=== PATIENT | female | born 1950 | race Caucasian/White ===

== ENCOUNTER 2017-09-04 12:15 | Outpatient (CLI) | payer OTHER ==
--- NOTE | 2017-09-05 07:51 | MRI ---
MRI LEFT KNEE WITHOUT CONTRAST: HISTORY: M22.92, unspecified internal derangement. Pain for 2 months. Injury helping move. COMPARISON: Knee radiographs 07/18/17. FINDINGS: Medial Meniscus: There is a full-thickness radial tear at the posterior root attachment of the median meniscus with a gap measuring approximately 4 mm. There is medial gutter extrusion of 4-5 mm median meniscal body. Lateral Meniscus: Intact. The ACL, PCL, MCL, and LCL are all intact. Extensor Mechanism: Quadriceps tendon, patellar tendon are all intact. CARTILAGE: Patellofemoral Compartment: Intact. Medial Compartment: There is chondral fraying and loss of 50-75% of the central weightbearing surface medial femoral cond yle. Lateral Compartment: A few shallow fissures of the weightbearing surface of tibial plateau. Posterior flexion zones are i ntact. Soft Tissues: Multiloculated leaking popliteal cyst containing debris. Muscles: Muscle signal and bulk is normal. IMPRESSION: 1. Full-thickness radial tear posterior root attachment median meniscus with a 4 mm gap with subsequ ent 4-5 mm medial gutter extrusion of the medial meniscal body. There is submeniscal medial tibial r im stress edema. 2. 50-75% chondral fraying of the weightbearing surface medial femoral condyle. 3. Leaking popliteal cyst. POS: [facility]
== END 2017-09-04 12:16 | disposition home or self-care (01) ==
LOC: SCSMRI 12:15
PROVIDERS: ATTEND Orthopaedic Surgery
DX: M25.562 Pain in left knee (principal); S83.242A Other tear of medial meniscus, current injury, left knee, initial encounter; M71.22 Synovial cyst of popliteal space [Baker], left knee

== ENCOUNTER 2017-09-12 10:03 | Outpatient (CLI) | payer MEDICARE ==
[2017-09-12 13:05] LABS: #Basophils 0.1 thou/uL (0.0-0.2); #Eosinphils 0.2 thou/uL (0.0-0.7); #Lymphocytes 2.5 thou/uL (1.20-3.40); #Monocytes 0.4 thou/uL (0.11-0.59); #Neutrophils 3.7 thou/uL (1.40-6.50); %Basophils 0.8 % (0.0-1.0); %Eosinophils 3.2 % (0.0-10.0); %Lymphocytes 35.7 % (21.0-51.0); %Monocytes 5.9 % (0.0-10.0); %Neutrophils 54.3 % (42.0-75.0); Hemoglobin 13.4 g/dL (12.0-16.0); Mean Corpuscular HGB CONC 32.6 g/dL (32.0-36.0); Mean Corpuscular Hemoglobin 30.8 pg (27.0-31.0); Mean Corpuscular Volume 94.6 fl (81.0-99.0); Mean Platelet Volume 8.1 fL (7.4-10.4); Platelet Count 274 thou/uL (130-400); RBC Distribution Width 12.1 % (11.5-14.5); Red Blood Cell (RBC) Count 4.35 mill/uL (4.20-5.40); White Blood Cell (WBC) Count 6.9 thou/uL (4.8-10.8)
[2017-09-12 13:37] LABS: Anion Gap 13 mmol/L (10-20); BUN (Urea Nitrogen) 10 mg/dL (9.8-20.1); Calc. Creatinine Clearance 0 mL/min (70-130); Carbon Dioxide 27 mmol/L (23-31); Chloride 103 mmol/L (98-107); Estimated GFR-MDRD 75; Glucose 95 mg/dL (80-115); Potassium 4.6 mmol/L (3.5-5.1); Sodium 138 mmol/L (136-145)
--- NOTE | 2017-09-12 16:04 | EKG ---
Test Reason : Blood Pressure : / mmHG Vent. Rate : 050 BPM Atrial Rate : 050 BPM P-R Int : 152 ms QRS Dur : 088 ms QT Int : 442 ms P-R-T Axes : 053 -04 072 degrees QTc Int : 402 ms Sinus bradycardia with sinus arrhythmia Cannot rule out Anterior infarct , age undetermined Abnormal ECG Confirmed by SIDNEY AJ ([id number]) on 09/12/2017 4:04:17 PM Referred By: NICKY Confirmed By:SIDNEY AJ
== END 2017-09-12 10:04 | disposition home or self-care (01) ==
LOC: LABBT 10:03
PROVIDERS: ATTEND Orthopaedic Surgery
DX: Z01.818 Encounter for other preprocedural examination (principal); S83.242A Other tear of medial meniscus, current injury, left knee, initial encounter
CPT/HCPCS: 80048; 85025; 93005; 93010

== ENCOUNTER 2017-09-14 06:09 | Day surgery (SDC) | payer MEDICARE ==
[2017-09-12 10:32] VITALS: BMI 35.6
[2017-09-14] MEDS ORDERED: CEFAZOLIN/Water 2 GM/20 ML SYRINGE ONE (06:56)
--- NOTE | 2017-09-14 10:08 | OP ---
PREOPERATIVE DIAGNOSIS: Medial meniscus tear, left knee. POSTOPERATIVE DIAGNOSIS: Medial meniscus tear, left knee. SURGEON: Yousif Mendiola M.D. ANESTHESIA: General. BLOOD LOSS: Minimal. SPECIMENS: None. DRAINS: None. COMPLICATIONS: None. FINDINGS AT SURGERY: Complex tear posterior horn medial meniscus, grade 3 with small areas of grade 4 chondromalacia in medial femoral condyle, intact lateral compartment, intact ACL, intact patellofem oral joint. Scope was placed in the lateral portal and probe was placed in medial portal. The menis cus was debrided using basket forceps and smoothed using a 4-0 full radius resector. I probed the re mainder of the meniscus confirmed it was stable. I debrided unstable articular cartilage flap tears medial femoral condyle. The knee was then drained. There were no complications.
[2017-09-14] MEDS ORDERED: Bupivacaine PF 0.5% 30 ML VIAL ONE (16:35)
[2017-09-14] MEDS ORDERED: Lidocaine 2% w/Epinephrine 1:200K 20 ML VIAL ONE (16:35)
[2017-09-14] MEDS ORDERED: Ondansetron HCl/PF 4 MG/2 ML Vial ONE (16:50)
[2017-09-14] MEDS ORDERED: Lidocaine 1% PF 5 ML VIAL ONE (16:50)
[2017-09-14] MEDS ORDERED: Propofol 200 MG/20 ML VIAL ONE (16:50)
== END 2017-09-14 11:00 | disposition home or self-care (01) ==
LOC: SDC 06:09
PROVIDERS: ATTEND Orthopaedic Surgery
PROC: 0SBD4ZZ Excision of Left Knee Joint, Percutaneous Endoscopic Approach (ICD-10-PCS; principal; 2017-09-14)
DX: S83.232A Complex tear of medial meniscus, current injury, left knee, initial encounter (principal); M94.262 Chondromalacia, left knee; Z88.5 Allergy status to narcotic agent; Z79.51 Long term (current) use of inhaled steroids; Z79.899 Other long term (current) drug therapy
CPT/HCPCS: 29881; 97139; G8978; G8979; G8980; J2001; J2405; J2704; S0020

== ENCOUNTER 2018-01-05 09:37 | Outpatient (CLI) | payer MEDICARE ==
--- NOTE | 2018-01-05 10:13 | RAD ---
TWO VIEWS OF THE CHEST: COMPARISON: 04/16/16. HISTORY: Preemployment physical examination. FINDINGS: Two views of the chest show normal sized cardiomediastinal silhouette. There is no evidence of consol idation, mass, or pleural effusion. Degenerative changes are seen in the spine. IMPRESSION: No evidence of acute cardiopulmonary disease. POS: [facility]
== END 2018-01-05 09:38 | disposition home or self-care (01) ==
LOC: RAD 09:37
PROVIDERS: ATTEND Family Medicine
DX: Z02.1 Encounter for pre-employment examination (principal)
CPT/HCPCS: 71046

== ENCOUNTER 2018-08-24 15:14 | Observation (INO) | payer MEDICARE ==
--- NOTE | 2018-08-24 15:42 | RAD ---
PORTABLE CHEST: HISTORY: Midsternal chest pressure x 1 week. COMPARISON: 09/01/2016 study. FINDINGS: Heart size and mediastinum are within normal limits. The lungs are clear of infiltrates. No signifi cant bony findings. IMPRESSION: No active intrathoracic disease. POS: [facility]
[2018-08-24 15:43] LABS: #Basophils 0.1 thou/uL (0.0-0.2); #Eosinphils 0.1 thou/uL (0.0-0.7); #Lymphocytes 3.2 thou/uL (1.20-3.40); #Monocytes 0.6 thou/uL (0.11-0.59); #Neutrophils 4.5 thou/uL (1.40-6.50); %Eosinophils 1.1 % (0.0-10.0); %Monocytes 6.8 % (0.0-10.0); %Neutrophils 53.1 % (42.0-75.0); Hemoglobin 13.8 g/dL (12.0-16.0); Mean Corpuscular HGB CONC 33.1 g/dL (32.0-36.0); Mean Corpuscular Hemoglobin 30.5 pg (27.0-31.0); Mean Corpuscular Volume 92.4 fL (78.0-98.0); Mean Platelet Volume 7.3 fL (7.4-10.4); Platelet Count 288 thou/uL (130-400); RBC Distribution Width 12.3 % (11.5-14.5); Red Blood Cell (RBC) Count 4.52 mill/uL (4.20-5.40); White Blood Cell (WBC) Count 8.5 thou/uL (4.8-10.8)
[2018-08-24 16:04] LABS: ALT (SGPT) 19 U/L (8-55); AST (SGOT) 23 U/L (5-34); Albumin 4.5 g/dL (3.4-4.8); Alkaline Phosphatase 81 U/L (40-150); Anion Gap 15 mmol/L (10-20); BUN (Urea Nitrogen) 21 mg/dL (9.8-20.1); Bilirubin, Total 0.4 mg/dL (0.2-1.2); CK (CPK) 54 U/L (29-168); Calc. Creatinine Clearance 0 mL/min (70-130); Calcium 10.1 mg/dL (7.8-10.44); Carbon Dioxide 27 mmol/L (23-31); Chloride 102 mmol/L (98-107); Estimated GFR-MDRD 59; Globulin 3.2 g/dL (2.4-3.5); Glucose 110 mg/dL (80-115); Lipase 36 U/L (8-78); Potassium 4.5 mmol/L (3.5-5.1); Protein, Total 7.7 g/dL (6.0-8.3); Sodium 139 mmol/L (136-145)
[2018-08-24] MEDS ORDERED: Aspirin Chewable 81 MG TAB ONE (17:16)
[2018-08-24] MEDS ORDERED: Lidocaine Viscous Sol 2% 15 ml UD Cup ONE (18:11)
[2018-08-24] MEDS ORDERED: Mag-Al 1200 mg/1200 mg/30 ML UDCUP ONE (18:11)
--- NOTE | 2018-08-24 18:19 | PDOC.FPRHP ---
- History of Present Illness Chief Complaint: Headache and CP History of Present Illness: 68 yo F with a PMH of GERD and HTN presents for a headache and chest pain. Patient's temporal headache started 3 days ago, patient was closely monitoring her BP and states it was 130s/70s. Today she woke up with chest pressure that was midsternal, did not radiate, and was exacerbated by laying flat. Patient states he had something similar 20 years ago that was decided to be reflux. She also had a stress test 1.5 yrs ago that was normal. Patient denies every having EGD. Pt has a history of depression and anxiety since her mother's last year, with frequent crying episodes. States she was started on lexapro 20 mg 3 months ago, but it was causing palpitations, so her PCP weaned her off and she stopped taking the medication 1 week ago. In the ED, EKG showed frequent PACs. CXR normal. GI cocktail significantly improved the chest pressure. - Allergies/Adverse Reactions Allergies Allergy/AdvReac Type Severity Reaction Status Date / Time codeine AdvReac Anaphylaxis Verified 08/24/18 19:43 - Home Medications Medication Instructions Recorded Confirmed Type Lisinopril 20 mg PO DAILY 09/12/17 08/24/18 History - History PMHx: GERD, HTN, seasonal allergies PSHx: tubal ligation, L meniscus repair FHx: Mother: HTN, stroke after fall (on anticoagulation); Mother with lumpectomy for breast cancer, sister with breast cancer, she has never had a mammo Social: 18 PY history, quit smoking 25 years ago; denied drug - Review of Systems General: reports: fatigue. denies: fever/chills, weight/appetite/sleep changes , night sweats Eyes: denies: eye pain, vision changes ENT: denies: nasal congestion, rhinorrhea Respiratory: denies: cough, congestion, shortness of breath Cardiovascular: reports: chest pain (chest pressure), palpitation Gastrointestinal: denies: nausea, vomiting, diarrhea, constipation, GI bleeding Genitourinary: denies: dysuria, other (no hematuria) Skin: denies: rashes, lesions Musculoskeletal: denies: stiffness, arthritis/arthralgias Neurological: denies: weakness Psychological: reports: anxiety, depression - Vital signs BP: [95.3] HR: [85] RR: [17] Tmax: [98.5] Pox: [98]% on [RA] Wt: [95.3] - Physical Exam Constitutional: NAD, awake, alert and oriented HEENT: normocephalic and atraumatic, PERRLA, EOMI, conjunctiva clear, grossly normal vision, grossly normal hearing, MMM, oropharynx clear Neck: supple, no LAD Chest: no-tender to palpation Heart: RRR, normal S1/S2, no murmurs/rubs/gallops, pulses present, no edema Lungs: CTAB, no respiratory distress, good air movement, no rales/rhonchi, no wheezing, no retractions, other (fine crackles at lung bases) Abdomen: soft, non-tender, bowel sounds present Musculoskeletal: normal structure, normal tone Neurological: no focal deficit, CN II-XII intact Skin: no rash/lesions, good turgor, capillary refill <2 seconds Heme/Lymphatic: no unusual bruising or bleeding, no purpura Psychiatric: normal mood and affect, good judgment and insight, intact recent and remote memory FMR H&P: Results - Labs Result Diagrams: 08/24/18 15:32 08/24/18 15:32 Lab results: WBC 8.5 thou/uL (4.8-10.8) 08/24/18 15:32 Hgb 13.8 g/dL (12.0-16.0) 08/24/18 15:32 Hct 41.7 % (36.0-47.0) 08/24/18 15:32 MCV 92.4 fL (78.0-98.0) 08/24/18 15:32 Plt Count 288 thou/uL (130-400) 08/24/18 15:32 Neutrophils % 53.1 % (42.0-75.0) 08/24/18 15:32 Sodium 139 mmol/L (136-145) 08/24/18 15:32 Potassium 4.5 mmol/L (3.5-5.1) 08/24/18 15:32 Chloride 102 mmol/L (98-107) 08/24/18 15:32 Carbon Dioxide 27 mmol/L (23-31) 08/24/18 15:32 BUN 21 mg/dL (9.8-20.1) H 08/24/18 15:32 Creatinine 0.94 mg/dL (0.6-1.1) 08/24/18 15:32 Glucose 110 mg/dL (80-115) 08/24/18 15:32 Calcium 10.1 mg/dL (7.8-10.44) 08/24/18 15:32 Total Bilirubin 0.4 mg/dL (0.2-1.2) 08/24/18 15:32 AST 23 U/L (5-34) 08/24/18 15:32 ALT 19 U/L (8-55) 08/24/18 15:32 Alkaline Phosphatase 81 U/L (40-150) 08/24/18 15:32 Creatine Kinase 54 U/L (29-168) 08/24/18 15:32 Serum Total Protein 7.7 g/dL (6.0-8.3) 08/24/18 15:32 Albumin 4.5 g/dL (3.4-4.8) 08/24/18 15:32 Lipase 36 U/L (8-78) 08/24/18 15:32 - EKG Interpretation EKG: SNR, frequent PACs - Radiology Interpretation Chest x-ray Status: image reviewed by me, report reviewed by me Additional comment: WNL FMR H&P: A/P - Problem List (1) Atypical chest pain Current Visit: Yes Status: Acute Code(s): R07.89 - OTHER CHEST PAIN (2) GERD (gastroesophageal reflux disease) Current Visit: Yes Status: Chronic Code(s): K21.9 - GASTRO-ESOPHAGEAL REFLUX DISEASE WITHOUT ESOPHAGITIS (3) HTN (hypertension) Current Visit: Yes Status: Chronic Code(s): I10 - ESSENTIAL (PRIMARY) HYPERTENSION (4) Depression Current Visit: Yes Status: Chronic Code(s): F32.9 - MAJOR DEPRESSIVE DISORDER, SINGLE EPISODE, UNSPECIFIED (5) Headache Current Visit: Yes Status: Acute Code(s): R51 - HEADACHE - Plan Atypical Chest pain -Heart score 4 -CXR wnl, EKG showed frequent PACs otherwise WNL -repeat EKG -Trend trops -Lipid panel -TSH -Mag and phos -AM stress -NPO @ midnight for stress Bilateral Temporal Headache, likely tension headache -BP mildy elevated to 153/83 -CN 2-12 intact -Reglan and benadryl, tylenol PRN HTN -continue lisinopril Depression and anxiety -aware GERD -GI Cocktail Code status: full code Diet: NPO @ midnight Dispo: Admit to tele obs - FMR H&P: Upper Level - Pertinent findings Vitals: BP: 153/83 RR: 17 P: 85 RR: 17 O2: 98% on RA. General: Alert and oriented x3 in no distress. Pain free. Heart: RRR, no MRG. No reproducible tenderness to palpation. Lungs: Clear to auscultation bilaterally. no crackles, wheezes, rhonchi Trop negative x 2 CMP wnl CBC wnl CXR wnl - Plan Date/Time: 08/24/181818 I, Marilee Ruvalcaba, have evaluated this patient and agree with findings/plan as outlined by food and beverage intern resident. Pertinent changes/additions are listed here. Atypical chest pain - ACS rule out. - will admit patient to telemetry for observation. - pain sounds most consistent with GERD given relief with GI cocktail, however with HEART score of 4 will pursue stress test in AM. - NPO after midnight - TSH, FLP, Mg, Phos, trend trops. Hypertension resume home meds. Depression - may consider switching to different SSRI.
[2018-08-24 18:43] LABS: Troponin I Less than 0.010 ng/mL (< 0.028)
[2018-08-24] MEDS ORDERED: Senokot S 8.6-50 MG TAB PO PRN (19:25)
[2018-08-24] MEDS ORDERED: Acetaminophen 325 MG TAB PO PRN (19:25)
[2018-08-24] MEDS ORDERED: Acetaminophen 650 MG Suppository PR PRN (19:25)
[2018-08-24 19:29] VITALS: BMI 38.3
[2018-08-24] MEDS ORDERED: Enoxaparin Sodium 40 MG/0.4 ML SYRINGE SC SCH (19:30)
[2018-08-24 19:44] LABS: Magnesium 2.4 mg/dL (1.6-2.6)
[2018-08-24] MEDS: Famotidine 20 MG TAB PO SCH (19:51)
[2018-08-24] MEDS ORDERED: diphenhydrAMINE 25 MG CAP PO SCH (22:00)
[2018-08-24 22:13] LABS: Troponin I Less than 0.010 ng/mL (< 0.028)
[2018-08-25 06:01] LABS: #Eosinphils 0.2 thou/uL (0.0-0.7); #Monocytes 0.5 thou/uL (0.11-0.59); #Neutrophils 3.2 thou/uL (1.40-6.50); %Basophils 0.6 % (0.0-1.0); %Eosinophils 2.7 % (0.0-10.0); %Lymphocytes 43.1 % (21.0-51.0); %Monocytes 7.6 % (0.0-10.0); Hemoglobin 12.7 g/dL (12.0-16.0); Mean Corpuscular Hemoglobin 30.5 pg (27.0-31.0); Mean Corpuscular Volume 92.5 fL (78.0-98.0); Mean Platelet Volume 7.3 fL (7.4-10.4); Platelet Count 253 thou/uL (130-400); RBC Distribution Width 12.4 % (11.5-14.5); Red Blood Cell (RBC) Count 4.16 mill/uL (4.20-5.40); White Blood Cell (WBC) Count 6.9 thou/uL (4.8-10.8)
[2018-08-25 06:15] LABS: Anion Gap 11 mmol/L (10-20); BUN (Urea Nitrogen) 19 mg/dL (9.8-20.1); Calc. Creatinine Clearance 92 mL/min (70-130); Calcium 9.4 mg/dL (7.8-10.44); Carbon Dioxide 28 mmol/L (23-31); Cardiac Risk 4.3 (Less than 4.5); Chloride 105 mmol/L (98-107); Cholesterol 249 mg/dl (< 200 Desired); Estimated GFR-MDRD 64; Glucose 98 mg/dL (80-115); HDL Cholesterol 58 mg/dL (>60 Neg Risk); LDL Cholesterol, Calculated 147 mg/dL; Potassium 4.3 mmol/L (3.5-5.1); Sodium 140 mmol/L (136-145); Triglycerides 218 mg/dL (Less than 150)
[2018-08-25] MEDS ORDERED: Metoclopramide HCl 10 MG TAB PO SCH (07:30)
--- NOTE | 2018-08-25 07:52 | PDOC.FM ---
- Subjective Subjective: 68F presents for CP. She had similar episode 1.5 year ago, had a stress which patient reports is normal. She is a retired nurse. Today, headache and chest pressurehas completely resolved. She denies SOB, headache, abd pain, nausea. Nursing reports no events overnight. - Objective MAR Reviewed: Yes Vital Signs & Weight: Vital Signs (12 hours) Temp Pulse Resp BP BP Pulse Ox 08/25/18 04:07 67 18 118/62 98 08/24/18 23:00 98.0 F 65 16 132/95 H 97 Weight Weight 95.073 kg Result Diagrams: 08/25/18 05:39 08/25/18 05:39 EKG Reviewed by me: Yes Radiology Reviewed by me: Yes Phys Exam - Physical Examination Constitutional: NAD HEENT: moist MMs Neck: no nodes, supple Respiratory: no wheezing, no rales, no rhonchi, clear to auscultation bilateral Cardiovascular: RRR, no significant murmur, no rub Tele strip shows NSR Gastrointestinal: soft, non-tender, no distention, positive bowel sounds Musculoskeletal: no edema, pulses present Neurological: non-focal, moves all 4 limbs Lymphatic: no nodes Psychiatric: normal affect, A&O x 3 Skin: no rash, normal turgor, cap refill <2 seconds Dx/Plan (1) Atypical chest pain Code(s): R07.89 - OTHER CHEST PAIN Status: Acute Plan: Heart score 4. CXR, EKG and trop been negative. Mg, phos normal. LDL, triglyceride elevated. Will get AM stress. (2) Headache Code(s): R51 - HEADACHE Status: Acute Plan: Resolved with benedryl and reglan. Has not recurred Will reevalute if it occurs. Likely tension headache. (3) HTN (hypertension) Code(s): I10 - ESSENTIAL (PRIMARY) HYPERTENSION Status: Chronic Plan: Chronic stable issue. Continue lisinopril. (4) Depression Code(s): F32.9 - MAJOR DEPRESSIVE DISORDER, SINGLE EPISODE, UNSPECIFIED Status : Chronic Plan: Patient has stated history of this, but not currently having issue at this stay Advise follow up with PCP for discussion med management and counseling. (5) GERD (gastroesophageal reflux disease) Code(s): K21.9 - GASTRO-ESOPHAGEAL REFLUX DISEASE WITHOUT ESOPHAGITIS Status: Chronic Plan: Patient received GI cocktail. No recurrence. Advise follow up with PCP for management. (6) HLD (hyperlipidemia) Code(s): E78.5 - HYPERLIPIDEMIA, UNSPECIFIED Status: Acute Plan: LDL 147, trig 218. Would benefit from statin. Consider atorvastatin 40. Advise follow up with pcp.
[2018-08-25] MEDS: Famotidine 20 MG TAB PO SCH (08:03)
[2018-08-25] MEDS ORDERED: Lisinopril 10 MG TAB PO SCH (09:00)
[2018-08-25] MEDS ORDERED: Enoxaparin Sodium 40 MG/0.4 ML SYRINGE SC SCH (09:00)
[2018-08-25] MEDS ORDERED: ADENOSINE 60 MG/20 ML VIAL ONE (13:19)
--- NOTE | 2018-08-25 15:08 | NM ---
MYOCARDIAL PERFUSION SCAN WITH SPECT IMAGING: HISTORY: Chest pain. TECHNIQUE/FINDINGS: Examination is performed using 31.7 mCi 99m-technetium sestamibi on the stress and 9.6 on the resting images. This shows a normal distribution of radiopharmaceutical. No signs of ischemia or scar. WALL MOTION: There is symmetric contractility to the ventricle. LEFT VENTRICULAR EJECTION FRACTION: The calculated left ventricular ejection fraction is 83%. IMPRESSION: Unremarkable myocardial perfusion scan. POS: [facility]
[2018-08-25 15:28] VITALS: BP 166/76; TEMP 98.2
--- NOTE | 2018-08-25 16:59 | DIS ---
DATE OF ADMISSION: 08/24/2018 DATE OF DISCHARGE: 08/25/2018 ADMITTING ATTENDING: Wallace Lopez MD DISCHARGE ATTENDING: Wallace Lopez MD DISCHARGING RESIDENT: Jevon Ledezma MD CONSULTS: None. PROCEDURES: Nuclear stress test interpretation: Unremarkable myocardial perfusion scan. There was no sign of ischemia or scar. There are symmetrical contractility to the ventricle, calculated left ventricular ejection fraction is 83%. PRIMARY DIAGNOSIS: Atypical chest pain. SECONDARY DIAGNOSES: 1. Headache. 2. Hypertension. 3. Depression. 4. Gastroesophageal reflux disease. 5. Hyperlipidemia. HISTORY OF PRESENT ILLNESS AND HOSPITAL COURSE: This is a 68-year-old female with past medical history of GERD and hypertension, who presented for a headache and chest pain. Headache started 3 days prior to admission. Her blood pressure was monitored and it was within normal limits at that time. On the day of admission, she woke up with chest pain that was substernal, did not radiate, exacerbate by lying flat. She had something that was similar to this previously that was found to be acid reflux. She also had a stress test 1.5 years ago, which she states was normal. She did not have an EGD. Troponin was negative x3 on admission and by the time, she was seen in the ER, she was pain free. Troponins and lipid panel were drawn, finding that she had hyperlipidemia with cholesterol LDL level at 147 and triglycerides 218. Her TSH was normal as rest of her electrolyte and CBC. She was given Reglan and benadryl, which resolved her headache. Her hypertension, depression, anxiety, and GERD were all found to be stable. The following day, she was sent to seen again, where she again endorse no recurrent headache or chest pain. She had a nuclear stress test done that was benign. It was then discussed with her to follow up with Dr. Gonzales, her PCP for titration of her statin for hyperlipidemia and for consideration of starting aspirin for cardiovascular protection. DISCHARGE MEDICATIONS: 1. Lisinopril 10 mg daily p.o. 2. Atorvastatin 40 mg p.o. daily. DISPOSITION: 1. To home. 2. Status stable. 3. Activity as tolerated. 4. Followup. Followup with Dr. Gonzales within 1 week. 5. Diet, as tolerated. Job ID: [id number] [facility]
--- NOTE | 2018-08-27 08:32 | HP ---
ADDENDUM: Please see the note from Dr. Jamil, for which I agree. The patient was seen, evaluated, and examined with the residents by bedside. HISTORY OF PRESENT ILLNESS: This is a 68-year-old female who had a normal stress test about 18 months ago, who comes in with headache for a couple of days, that then was followed by chest discomfort and tightness and maybe a little bit of nausea, not that short of breath, not having edema. Symptoms have been on again off again for the last 24 hours since She has basically been in the hospital, it is in the middle of the stress test currently. Blood pressure though is adequate throughout this whole time. PAST MEDICAL HISTORY: All per the resident's history and physical for which I agree. PAST SURGICAL HISTORY: All per the resident's history and physical for which I agree. FAMILY HISTORY: All per the resident's history and physical for which I agree. SOCIAL HISTORY: All per the resident's history and physical for which I agree. MEDICATIONS: All per the resident's history and physical for which I agree. REVIEW OF SYSTEMS: All per the resident's history and physical for which I agree. PHYSICAL EXAMINATION: VITAL SIGNS: Afebrile, vital signs are stable. GENERAL: No apparent distress. No respiratory distress. HEENT: ENT is normal. CHEST: Clear. HEART: Regular rate and rhythm. EXTREMITIES: No edema. LABORATORY DATA: Reviewed, pretty benign. ASSESSMENT AND PLAN: 1. Chest tightness and pain, possibly reflux, but could be cardiac. The plan is to see what the stress test shows. Obviously it is abnormal, we will need to get Cardiology involved. Otherwise, continue aspirin, etc. 2. Headache, mild reflux type symptoms. We are reassured at this point of time as she is better. I think it could be stress related and even possibly withdrawal as she weaned off Lexapro not that long ago. Job ID: [id number]
--- NOTE | 2018-09-01 16:00 | EKG ---
Test Reason : Blood Pressure : / mmHG Vent. Rate : 082 BPM Atrial Rate : 082 BPM P-R Int : 138 ms QRS Dur : 092 ms QT Int : 390 ms P-R-T Axes : 058 -19 086 degrees QTc Int : 455 ms Suspect unspecified pacemaker failure Sinus rhythm with Premature atrial complexes Inferior infarct , age undetermined Abnormal ECG Confirmed by CLEVELAND BUCK ([id number]), telegraph editor SANDRA DOYLE ([id number]) on 09/01/2018 3:59:33 PM Referred By: Confirmed By:CLEVELAND BUCK
== END 2018-08-25 15:58 | disposition home or self-care (01) ==
LOC: ERS 15:14 → 2SW 17:10
PROVIDERS: ADMIT Family Medicine; ATTEND Family Medicine
DX: R07.89 Other chest pain (principal); R51 Headache; I10 Essential (primary) hypertension; F41.9 Anxiety disorder, unspecified; K21.9 Gastro-esophageal reflux disease without esophagitis; F32.9 Major depressive disorder, single episode, unspecified; E78.5 Hyperlipidemia, unspecified; Z98.51 Tubal ligation status; Z88.5 Allergy status to narcotic agent; Z87.891 Personal history of nicotine dependence; Z79.899 Other long term (current) drug therapy; Z98.890 Other specified postprocedural states
CPT/HCPCS: 71045; 78452; 80048; 80061; 82550; 83690; 83735; 84100; 84484 ×2; 85025; 93005; 93017; 94760; 99285; A9500; G0378 ×2; 36415; 36416; 80053; 84443; 93010; J0153; J1650; J8597; Q0163

== ENCOUNTER 2018-09-12 10:57 | Outpatient (CLI) | payer MEDICARE ==
--- NOTE | 2018-09-12 12:21 | ULT ---
ABDOMINAL ULTRASOUND: Date: 09-12-18 Provided Clinical History: Epigastric pain. FINDINGS: The visualized abdominal aorta, IVC, and pancreas appear normal. The liver demonstrates increased ech ogenicity compatible with fatty infiltration, without evidence for mass or intrahepatic biliary ducta l dilatation. The common duct is not dilated. The gallbladder demonstrates no stones, wall thickening , or pericholecystic fluid. The kidneys demonstrate no hydronephrosis or mass. The spleen is not enla rged and demonstrates no focal abnormality. IMPRESSION: Fatty infiltration of the liver. POS: [facility]
== END 2018-09-12 10:58 | disposition home or self-care (01) ==
LOC: SCSULT 10:57
PROVIDERS: ATTEND Family Medicine
DX: R10.13 Epigastric pain (principal); K76.0 Fatty (change of) liver, not elsewhere classified
CPT/HCPCS: 76700